=== PATIENT | female | born 1955 | race Caucasian/White ===

== ENCOUNTER 2017-12-19 13:02 | Emergency (ER) | payer OTHER ==
[~2017-12-19] VITALS: Ht 149.9 cm; Wt 76.0 kg
[2017-12-19 13:07] VITALS: BP 144/73
== END 2017-12-19 18:03 | disposition left against medical advice (07) ==
LOC: ER 13:40
DX: Z53.21 Procedure and treatment not carried out due to patient leaving prior to being seen by health care provider (principal)